=== PATIENT | male | born 1970 | race Caucasian/White ===

== ENCOUNTER 2023-01-12 11:37 | Emergency (ER) | payer BC, OTHER ==
[~2023-01-12] VITALS: Ht 188 cm; Wt 83.9 kg
[2023-01-12 11:37] VITALS: BP_SYST 131
--- NOTE | 2023-01-12 11:37 | NUR ---
RECEIVED PT FROM TRIAGE NURSE. PT BIBS FOR C/O MECH FALL CAUSING IMPACT TO LEFT EYE AND FOREHEAD CAUSING SWELLING AND MULTIPLE CONTUSIONS, SKIN INTACT. FALL OCCURED 3 DAYS AGO. VSS.
--- NOTE | 2023-01-12 11:40 | NUR ---
DR. BAUM AT BEDSIDE TO ASSESS PT.
--- NOTE | 2023-01-12 12:10 | NUR ---
PT OFF MONITOR AND TAKEN FOR CT SCAN.
--- NOTE | 2023-01-12 12:35 | NUR ---
PT BACK FROM CT SCAN AND PLACED ON MONITOR.
--- NOTE | 2023-01-12 13:32 | NUR ---
PATIENT RESTING COMFORTABLY, NO C/O PAIN. AWAITING TEST RESULTS. AMBULATED TO RESTROOM WITH NO C/O DIZZINESS.
[2023-01-12 13:44] VITALS: BP_SYST 124
--- NOTE | 2023-01-12 13:44 | NUR ---
Patient given written and verbal discharge instructions and verbalizes understanding. ER MD BAUM discussed with patient the results and treatment provided. Patient in stable condition. ID arm band removed. Patient educated on pain management and to follow up with PMD. Pain Scale 2/10. Opportunity for questions provided and answered. Medication side effect fact sheet provided.
== END 2023-01-12 13:44 | disposition home or self-care (01) ==
LOC: SED 11:37
DX: S09.90XA Unspecified injury of head, initial encounter (principal); Z79.899 Other long term (current) drug therapy; W18.40XA Slipping, tripping and stumbling without falling, unspecified, initial encounter; Y93.89 Activity, other specified; Y92.89 Other specified places as the place of occurrence of the external cause; Y99.8 Other external cause status
CPT/HCPCS: 70450-TC; 76376; 99284

== ENCOUNTER 2023-12-08 19:13 | Emergency (ER) | payer OTHER, BC ==
[~2023-12-08] VITALS: Ht 177.8 cm; Wt 65.8 kg
[2023-12-08 19:22] VITALS: BP_SYST 143; PULSE 89; RESP 16; TEMP 98.3; O2SAT 96
[2023-12-08 21:02] VITALS: BP_SYST 143; PULSE 89; RESP 18; TEMP 98.3; O2SAT 96
== END 2023-12-08 21:03 | disposition home or self-care (01) ==
LOC: SED 19:13
DX: S09.90XA Unspecified injury of head, initial encounter (principal); V89.2XXA Person injured in unspecified motor-vehicle accident, traffic, initial encounter; Y93.89 Activity, other specified; Y92.89 Other specified places as the place of occurrence of the external cause; Y99.8 Other external cause status
CPT/HCPCS: 70450-TC; 99284